=== PATIENT | male | born 1945 | race Caucasian/White ===

== ENCOUNTER 2025-10-15 07:34 | Day surgery (SDC) | payer MEDICARE, OTHER, SELFPAY ==
[2025-10-15] VITALS (10 sets, daily range): BP systolic 107–117; BP diastolic 42–74; BMI 28.7
[2025-10-15 08:25] LABS: Glucose - Point of Care 161 mg/dl (70-99)
[2025-10-15] MEDS: NSS 1000 IV (10:03)
--- NOTE | 2025-10-15 16:45 | ITS.CL.CATH ---
Circulation Director - Catheterization
Cardiac Catheterization
Procedure Report:
LEFT HEART CATHETERIZATION
Date of Procedure: October 15, 2025
Procedures performed:
1: Coronary angiography
2: Saphenous vein and left internal mammary artery graft angiography
3: Left ventricular hemodynamic assessment
Primary Care Physician: Dr. Fran Patiño
Primary Aerial Applicator Pilot: Myself
INDICATION: The patient is a 80-year-old man with a past medical history significant for coronary artery disease status post CABG and status post RCA stenting post CABG in 2020, diabetes, hypertension, and hyperlipidemia who has experienced an
asymptomatic drop in his ejection fraction. EF by echo was estimated at 30%. Nuclear perfusion imaging showed predominantly fixed inferior defect with a gated EF of 22%. In light of the significant drop in his LV function he is referred for
coronary angiography. Of note he had no symptoms prior to needing urgent surgery in 2020 for complex CAD.
ACCESS: The patient was prepped and draped in usual sterile fashion. A 6 Scottish sheath was placed in the left artery using the Seldinger over the wire technique.
HEMODYNAMIC FINDINGS (mmHg):
LV(s/d,EDP): 109/7, 17
Ao(s/d,m): 109/57, 99
ANGIOGRAPHIC FINDINGS:
Single-plane Left Ventriculography in COBIAN Projection: Not done. Multiple noninvasive studies recently done as described above.
Coronary Angiography:
Dominance: Right
Left Main: Medium caliber with distal 95% stenosis and poor antegrade flow into the LAD. Trickle of flow into the standing rock circumflex.
Left Anterior Descending: Diffuse 95% ostial disease with competitive flow from the patent GLORIA to LAD and SVG to diagonal.
Left Circumflex: Functional proximal occlusion with a trickle of antegrade flow into a low-lying distal circumflex system.
Right Coronary: Proximal total occlusion at the previous proximal stent site with very faint right to right collaterals. The distal right system fills mostly via the GLORIA and SVG left-sided collaterals.
GLORIA to LAD: Widely patent
SVG to diagonal: The graft is widely patent. The previously placed stent in the distal portion of the graft and into the standing rock touchdown is widely patent with no significant in-stent restenosis. The distal vessel has severe small vessel disease
and does give collaterals to a bifurcating distal ramus/high OM. The flow in this vessel appears improved compared to post intervention in March 2021. This may be partially due to the interval occlusion of the standing rock right.
Fluoroscopy Time (min): 5.5
Radiation Dose (mGy): 341
DAP (Gy.cm2): 26
Closure device: None. A TR band was applied for hemostasis at the right wrist.
Complications: None.
ASSESSMENT:
1: Widely patent GLORIA to LAD and SVG to diagonal. He is essentially living off these 2 grafts.
2: Functional occlusion of the standing rock right and standing rock left main. The interval occlusion of the previously stented proximal right coronary artery may account for the inferior fixed perfusion defect and the drop in ejection fraction.
3: Fairly well compensated left ventricular filling pressures.
CONCLUSIONS and RECOMMENDATIONS:
1: Medical therapy for coronary artery disease, ischemic cardiomyopathy, diabetes, hypertension, and hyperlipidemia.
2: I will revisit the conversation of ICD placement for primary prevention however in the past he has not been interested in this therapy.
3: Close clinical follow-up as scheduled.
Kelly Ellis M.D.
== END 2025-10-15 12:37 | disposition home or self-care (01) ==
LOC: CATH 07:34
PROVIDERS: ATTENDING PHYSICIAN Internal Medicine Interventional Cardiology; FAMILY PHYSICIAN Family Medicine
DX: I25.10 Atherosclerotic heart disease of native coronary artery without angina pectoris (principal); I10 Essential (primary) hypertension; E78.5 Hyperlipidemia, unspecified; E11.9 Type 2 diabetes mellitus without complications; Z95.1 Presence of aortocoronary bypass graft; Z95.5 Presence of coronary angioplasty implant and graft; I25.5 Ischemic cardiomyopathy; Z79.82 Long term (current) use of aspirin; Z79.899 Other long term (current) drug therapy; Z79.84 Long term (current) use of oral hypoglycemic drugs; Z79.01 Long term (current) use of anticoagulants
CPT/HCPCS: 82962; 93459; C1769; Q9967